=== PATIENT | female | born 1995 | race Caucasian/White ===

== ENCOUNTER 2018-05-26 11:33 | Inpatient (IN) | payer MEDICAID, OTHER, SELFPAY ==
[2018-05-26] MEDS ORDERED: Bupivacaine 0.25% HCL 30 ML VIAL ONE (12:00)
[2018-05-26 12:16] VITALS: BMI 36.7
[2018-05-26 12:48] LABS: Amnisure Test RUPTURE DETECTED (No Rupture)
[2018-05-26 12:51] LABS: Amnisure Internal Control QC ACCEPTABLE (ACCEPTABLE)
[2018-05-26] MEDS ORDERED: Lidocaine 1% (PF) 30 ML VIAL SC PRN (13:15)
[2018-05-26] MEDS ORDERED: Ondansetron HCl/PF 4 MG/2 ML Vial IVP PRN (13:15)
[2018-05-26] MEDS ORDERED: Penicillin G Potassium 5 MILL.UNITS in Sodium Chloride 0.9% 100 ML IVPB SCH (13:15)
[2018-05-26] MEDS ORDERED: Zolpidem Tartrate 5 MG TAB PO PRN (13:15)
[2018-05-26] MEDS ORDERED: Promethazine HCl 25 MG/ML VIAL IM PRN (13:15)
[2018-05-26] MEDS ORDERED: Lactated Ringer's 1,000 ML IV SCH (13:15)
[2018-05-26] MEDS ORDERED: NS / Oxytocin 40 units/1000ml 1,000 ML IV PRN (13:15)
[2018-05-26] MEDS ORDERED: NS w/ Oxytocin 10 units 500 ML IV SCH ×2 (13:15→22:00)
[2018-05-26] MEDS ORDERED: HYDROcodone/Acetaminophen 5/325 mg Tablet PO PRN ×2 (13:15)
[2018-05-26] MEDS ORDERED: Ibuprofen 800 MG TAB PO PRN (13:15)
[2018-05-26] MEDS ORDERED: Butorphanol Tartrate 1 MG/ML VIAL SLOW IVP PRN (13:15)
--- NOTE | 2018-05-26 13:28 | PDOC.LDHP ---
Labor and Delivery H&P Chief complaint: loss of fluid HPI: 22 yo WG presents c/o suspected SROM at 0030. Denies bleeding or UCs. Current gestational age (weeks): 37 Due date: 06/15/18 Dating criteria: last menstrual period Grav: 1 Para: 0 OB History Details: PNC with royal Fernández, h/o anxiety started on Prozac. Current complications: none Abnormal US findings: No Past Medical History: asthma as child, no recent attacks Current medications: pre-herve vitamins Previous surgical history: other (T&A, knee x2) Allergies/Adverse Reactions: Allergies Allergy/AdvReac Type Severity Reaction Status Date / Time No Known Allergies Allergy Verified 12/20/13 16:15 Social history: none - Physical Exam Abnormal vital signs: BP= 140/90's General: NAD Lungs: nonlabored breathing Abdomen: gravid Extremeties: trace edema FHT: category 1 [place] contractions every: irritability seen - OB Labs Blood type: A RH: positive GBS: positive (per pt. report) - Assessment L&D Assessment: term rupture in membranes - Plan Plan: admit to L&D, GBS antibiotic prophylaxis (Royal Fernández notified of pt. in L&D )
[2018-05-26] MEDS: Lactated Ringer's 1,000 ML IV SCH ×2 (14:00→20:16)
[2018-05-26] MEDS: Misoprostol 100 MCG TAB PO SCH ×3 (14:09→20:15)
[2018-05-26 14:10] LABS: Hemoglobin 11.4 g/dL (12.0-16.0); Mean Corpuscular HGB CONC 34.6 g/dL (32.0-36.0); Mean Corpuscular Hemoglobin 29.2 pg (27.0-31.0); Mean Corpuscular Volume 84.4 fL (78.0-98.0); Mean Platelet Volume 8.4 fL (7.4-10.4); Platelet Count 244 thou/uL (130-400); RBC Distribution Width 13.3 % (11.5-14.5); White Blood Cell (WBC) Count 12.6 thou/uL (4.8-10.8)
[2018-05-26 14:36] LABS: ALT (SGPT) Less than 7 U/L (8-55); AST (SGOT) 11 U/L (5-34); Albumin 3.2 g/dL (3.5-5.0); Alkaline Phosphatase 125 U/L (40-150); Anion Gap 14 mmol/L (10-20); BUN (Urea Nitrogen) 6 mg/dL (7.0-18.7); Bilirubin, Total 0.3 mg/dL (0.2-1.2); Calc. Creatinine Clearance 206 mL/min (70-130); Calcium 8.6 mg/dL (7.8-10.44); Carbon Dioxide 19 mmol/L (22-29); Chloride 106 mmol/L (98-107); Estimated GFR-MDRD Greater than 90; Globulin 2.5 g/dL (2.4-3.5); Glucose 83 mg/dL (70-105); Potassium 4.3 mmol/L (3.5-5.1); Protein, Total 5.7 g/dL (6.0-8.3); Sodium 135 mmol/L (136-145)
[2018-05-26 14:55] LABS: HBSAg Index 0.18 S/CO (0-0.99); Hep B Surf Ag Non-Reactive S/CO (NonReactive); Syphilis Antibody Nonreactive (Nonreactive); Syphilis Antibody Index 0.04 S/CO (<1.00 Non-Reactive)
[2018-05-26 15:16] LABS: Bilirubin Small (Negative); Blood, Urine Large (Negative); Clarity CLOUDY (Clear); Glucose, Urine (Dipstick) Negative (Negative); Leukocyte Moderate (Negative); Nitrite Negative (Negative); Protein, Urine (Dipstick) 30 mg/dL (Neg-Trace); Specific Gravity, Urine 1.027 (1.002-1.036)
[2018-05-26 15:18] LABS: Bacteria/HPF None Seen HPF (None Seen); Hyaline Casts/LPF 7-10 HYALINE CAST LPF (0-3 Hyaline); Pathc Cast-AUWi Flag 1.88 (0-2.49); RBC/HPF GREATER THAN 50-TNTC HPF (0-3)
[2018-05-26] MEDS ORDERED: Bupivacaine 0.75% 13.4 ML, fentaNYL Citrate/PF 400 MCG in Sodium Chloride 0.9% 78.6 ML EPIDURAL SCH (17:30)
[2018-05-26] MEDS ORDERED: DISCONTINUE ALL PREVIOUS NARCOTICS FS SCH (17:30)
[2018-05-26] MEDS: Penicillin G 2.5 MILL.units 2.5 MILL.UNITS in Premix Bag 1 BAG IVPB SCH ×2 (18:05→22:17)
[2018-05-26] MEDS ORDERED: Acetaminophen 500 MG TAB PO PRN (23:34)
[2018-05-27] MEDS ORDERED: Bupivacaine 0.75% 13.4 ML, fentaNYL Citrate/PF 400 MCG in Sodium Chloride 0.9% 78.6 ML EPIDURAL SCH (01:30)
[2018-05-27] MEDS ORDERED: DISCONTINUE ALL PREVIOUS NARCOTICS FS SCH (01:30)
[2018-05-27] MEDS ORDERED: Methylergonovine 0.2 MG/ML VIAL ONE (02:10)
[2018-05-27] MEDS: Misoprostol 200 MCG TAB ONE (02:20)
--- NOTE | 2018-05-27 02:50 | PDOC.OPDEL ---
OB Operative/Delivery Note Delivery Dr/Surgeon: Emily galeano CNM Pre-Delivery Diagnosis: active labor Procedure/Post Delivery Dx: spontaneous vaginal delivery Weeks gestation: 37 Anesthesia: epidural - Findings A Sex: female Weight: 6 lb 12 oz - 1 min: 9 - 5 min: 9 - Additional Findings/Plan Placenta delivered: manual removal Repaired Obstetrical Laceration: right labial (and left labial) Estimated blood loss: 500mL Compilations/Other Findings: retained placenta at 30 mins after delivery of . manual removal performed. uterus was boggy immediately following despite bimanual massage and pitocin. Methergine IM given and rectal cytotec. Ancef IVP for infection prophylaxis. Post delivery plan: routine recovery
[2018-05-27] MEDS ORDERED: CEFAZOLIN/Water 2 GM/20 ML SYRINGE SLOW IVP SCH (03:00)
[2018-05-27] MEDS ORDERED: Methylergonovine 0.2 MG/ML VIAL IM SCH (03:00)
[2018-05-27] MEDS ORDERED: Methylergonovine 0.2 MG/ML VIAL IM PRN (05:41)
[2018-05-27] MEDS ORDERED: NS / Oxytocin 40 units/1000ml 1,000 ML IV SCH (05:41)
[2018-05-27] MEDS ORDERED: Milk Of Magnesia 30 ML UDCUP PO PRN (05:41)
[2018-05-27] MEDS ORDERED: Adacel (T-DAP) 0.5 ML VIAL IM ONE (05:41)
[2018-05-27] MEDS ORDERED: Misoprostol 200 MCG TAB VAG SCH (05:41)
[2018-05-27] MEDS ORDERED: Benzocaine/Menthol 20-0.5% 60 ML CAN TOP PRN (05:41)
[2018-05-27] MEDS ORDERED: Bisacodyl 10 MG SUPP PR PRN (05:41)
[2018-05-27] MEDS ORDERED: Measles/Mumps/Rubella 10 MCG/0.5 ML VIAL SC ONE (05:41)
[2018-05-27] MEDS ORDERED: Ondansetron HCl/PF 4 MG/2 ML Vial IVP PRN (05:41)
[2018-05-27] MEDS ORDERED: Varicella virus, LIVE 0.5 ML VIAL SC ONE (05:41)
[2018-05-27] MEDS ORDERED: Ibuprofen 800 MG TAB PO SCH (06:00)
[2018-05-27] MEDS ORDERED: Ondansetron ODT 4 MG TAB PO PRN (06:06)
[2018-05-27] MEDS: HYDROcodone/Acetaminophen 5/325 mg Tablet PO PRN ×4 (06:22→20:25)
[2018-05-27] MEDS: Misoprostol 100 MCG TAB PO SCH ×2 (08:00→08:01)
[2018-05-27] MEDS: Penicillin G 2.5 MILL.units 2.5 MILL.UNITS in Premix Bag 1 BAG IVPB SCH (08:01)
[2018-05-27] MEDS: Lactated Ringer's 1,000 ML IV SCH (08:02)
[2018-05-27] MEDS: Ferrous Sulfate 325 MG TAB PO SCH ×2 (09:47→18:34)
[2018-05-27] MEDS: Docusate Calcium (SURFAK) 240 MG CAP PO SCH ×2 (09:48→21:29)
[2018-05-27] MEDS: Ibuprofen 800 MG TAB PO SCH ×2 (12:49→21:29)
[2018-05-27] MEDS ORDERED: diphenhydrAMINE 25 MG CAP PO PRN (15:18)
[2018-05-28 05:30] LABS: Hemoglobin 7.9 g/dL (12.0-16.0); Mean Corpuscular HGB CONC 33.5 g/dL (32.0-36.0); Mean Corpuscular Hemoglobin 28.9 pg (27.0-31.0); Mean Corpuscular Volume 86.3 fL (78.0-98.0); Mean Platelet Volume 8.1 fL (7.4-10.4); Platelet Count 171 thou/uL (130-400); RBC Distribution Width 13.3 % (11.5-14.5); Red Blood Cell (RBC) Count 2.72 mill/uL (4.20-5.40); White Blood Cell (WBC) Count 12.6 thou/uL (4.8-10.8)
[2018-05-28] MEDS: Ibuprofen 800 MG TAB PO SCH ×3 (05:49→21:42)
[2018-05-28] MEDS: HYDROcodone/Acetaminophen 5/325 mg Tablet PO PRN ×2 (05:50→17:37)
[2018-05-28] MEDS: Ferrous Sulfate 325 MG TAB PO SCH ×2 (09:46→17:31)
[2018-05-28] MEDS: Docusate Calcium (SURFAK) 240 MG CAP PO SCH ×2 (09:46→21:42)
[2018-05-29] MEDS: Ibuprofen 800 MG TAB PO SCH (06:09)
[2018-05-29 07:49] VITALS: BP 129/71; TEMP 98.4
[2018-05-29] MEDS: Ferrous Sulfate 325 MG TAB PO SCH (09:23)
[2018-05-29] MEDS: Docusate Calcium (SURFAK) 240 MG CAP PO SCH (09:23)
--- NOTE | 2018-05-29 10:12 | PDOC.PP ---
Post Progress Note Post Day #: 1 Subjective: doing well. had BM. struggling with PO intake tolerated: yes Flatus: yes Ambulation: yes Vital Signs (12 hours) Temp Pulse Resp BP 05/29/18 08:00 98.4 F 79 18 05/29/18 07:48 98.4 F 79 18 129/71 Weight Weight 201 lb - Physical Examination General: NAD Cardiovascular: no m/r/g Respiratory: non-labored breathing Abdominal: lochia (minimla) Extremities: negative homans (B) Psychiatric: A&Ox3 Result Diagrams: 05/28/18 04:42 05/26/18 14:04 Additional Labs: Post Labs Blood Type A POSITIVE 05/26/18 14:04 Hep Bs Antigen Non-Reactive S/CO (NonReactive) 05/26/18 14:04 (1) (spontaneous vaginal delivery) Code(s): O80 - ENCOUNTER FOR FULL-TERM UNCOMPLICATED DELIVERY Status: Acute - Assessment/Plan G1 no p1 sp . NML PPD#1 exam encouraged and pumping. routine care. will keep patient until tomorrow - because of increased risk of endometritis..
== END 2018-05-29 10:40 | disposition home or self-care (01) | DRG 767 ==
LOC: L&D/OP 11:33 → L&D 13:09 → 3SW 05-27 05:35
PROVIDERS: ADMIT Obstetrics & Gynecology; ATTEND Obstetrics & Gynecology
PROC: 10E0XZZ Delivery of Products of Conception, External Approach (ICD-10-PCS; principal; 2018-05-27)
PROC: 10D17Z9 Manual Extraction of Products of Conception, Retained, Via Natural or Artificial Opening (ICD-10-PCS; 2018-05-27)
PROC: 0UQMXZZ Repair Vulva, External Approach (ICD-10-PCS; 2018-05-27)
DX: O73.0 Retained placenta without hemorrhage (principal); Z37.0 Single live birth; O70.0 First degree perineal laceration during delivery; O75.89 Other specified complications of labor and delivery; Z3A.37 37 weeks gestation of pregnancy
CPT/HCPCS: 36415; 51702; 80053; 81015; 84112; 85027; 86780; 86850; 86900; 86901; 87340; 88307; 99285; J0595; J2001; J2210; J2405; J2540; J3010; J7050; Q0162; S0020

== ENCOUNTER 2020-07-15 14:43 | Day surgery (SDC) | payer OTHER ==
[2020-07-15 15:23] VITALS: BMI 37.7
[2020-07-15] MEDS ORDERED: hydrALAZINE 20 MG/ML VIAL SLOW IVP PRN (15:28)
[2020-07-15 16:16] LABS: #Eosinphils 0.1 thou/uL (0.0-0.7); #Lymphocytes 1.5 thou/uL (1.20-3.40); #Neutrophils 10.4 thou/uL (1.40-6.50); %Basophils 0.2 % (0.0-1.0); %Eosinophils 0.9 % (0.0-10.0); %Lymphocytes 11.3 % (21.0-51.0); %Monocytes 7.5 % (0.0-10.0); Hemoglobin 11.8 g/dL (12.0-16.0); Mean Corpuscular HGB CONC 34.9 g/dL (32.0-36.0); Mean Corpuscular Hemoglobin 29.3 pg (27.0-31.0); Mean Platelet Volume 8.4 fL (7.4-10.4); Platelet Count 254 thou/uL (130-400); RBC Distribution Width 12.7 % (11.5-14.5); Red Blood Cell (RBC) Count 4.01 mill/uL (4.20-5.40)
[2020-07-15 16:24] LABS: Creatinine, Urine 256.11 mg/dL (47-110)
[2020-07-15 16:50] LABS: ALT (SGPT) Less than 7 U/L (8-55); AST (SGOT) 10 U/L (5-34); Albumin 3.2 g/dL (3.5-5.0); Alkaline Phosphatase 112 U/L (40-110); Anion Gap 14 mmol/L (10-20); BUN (Urea Nitrogen) 5 mg/dL (7.0-18.7); Bilirubin, Total 0.2 mg/dL (0.2-1.2); Calc. Creatinine Clearance 238 mL/min (70-130); Calcium 8.5 mg/dL (7.8-10.44); Carbon Dioxide 21 mmol/L (22-29); Chloride 105 mmol/L (98-107); Estimated GFR-MDRD Greater than 90; Globulin 3.3 g/dL (2.4-3.5); Glucose 75 mg/dL (70-105); Potassium 3.7 mmol/L (3.5-5.1); Protein, Total 6.5 g/dL (6.0-8.3); Sodium 136 mmol/L (136-145)
== END 2020-07-15 17:30 | disposition home or self-care (01) ==
LOC: L&D/OP 14:43
PROVIDERS: ATTEND Advanced Practice Midwife
DX: O14.90 Unspecified pre-eclampsia, unspecified trimester (principal); O99.89 Other specified diseases and conditions complicating pregnancy, childbirth and the puerperium; H53.8 Other visual disturbances; Z3A.00 Weeks of gestation of pregnancy not specified
CPT/HCPCS: 36415; 80053; 82570; 84156; 85025; 99283

== ENCOUNTER 2020-07-20 22:11 | Day surgery (SDC) | payer OTHER ==
[2020-07-20 22:44] VITALS: BMI 38.9
[2020-07-20 22:52] VITALS: BP 119/76; TEMP 98.3
[2020-07-21] MEDS ORDERED: hydrALAZINE 20 MG/ML VIAL SLOW IVP PRN (00:31)
--- NOTE | 2020-07-21 01:35 | PRG ---
DATE OF SERVICE: 07/20/2020 PRIMARY OB: Nora Fernández CNM CHIEF COMPLAINT: Elevated blood pressure. HISTORY OF PRESENT ILLNESS: The patient is a 24-year-old, G2, P1 female with an IUP at 35 weeks and 2 days, presenting to Labor and Delivery with elevated blood pressure at home today. She reports top number being in the 140s, the bottom number being in the 80s. She reports that she last week was seen in the clinic and was noted to have 2 mild range blood pressures there and since has been checking her blood pressures at home. The patient reports she had a headache earlier that has now resolved spontaneously. She denies fever, cough, or chest pain. She has some shortness of breath with the , but denies any acute changes, more specifically she has difficulty taking a deep breath. She denies any new rashes, nausea, vomiting, diarrhea, or constipation. She has some hip pains with this . She denies vaginal bleeding, leakage of fluid, change in discharge, urinary urgency or frequency. PAST MEDICAL HISTORY: Asthma, controlled off medication. PAST SURGICAL HISTORY: She has had orthopedic surgery on her knees, tonsils removed, and wisdom tooth extraction. ALLERGIES: NO KNOWN DRUG ALLERGIES. MEDICATIONS: vitamins. SOCIAL HISTORY: Denies drug, alcohol, or tobacco use. OB HISTORY: Preeclampsia with her previous . OB LABS: Unavailable at time of dictation. REVIEW OF SYSTEMS: Per HPI. PHYSICAL EXAMINATION: VITAL SIGNS: Blood pressures over the last 2 hours have been in the one teens over 70s, heart rate in the 90s, respiratory rate 18, saturating 98% on room air, and temperature 98.3. GENERAL: She appears to be in no acute distress. She is alert, oriented, cooperative, and pleasant to interact with. HEAD: Normocephalic and atraumatic. LUNGS: Clear to auscultation bilaterally. HEART: Regular rate and rhythm. ABDOMEN: Gravid, soft, and nontender. EXTREMITIES: Nontender and nonedematous. : Has been deferred. heart tracing shows the fetus with a baseline in the 130s with moderate long-term variability positive 15 x 15 accelerations, no decelerations. Tocometer showing some irritability, but not palpable by the patient. ASSESSMENT AND PLAN: The patient is a 24-year-old female with a history of preeclampsia and concerns of elevated blood pressure at home. Blood pressures here been checked over the course of 2 hours and were all been well within normal limits. The patient has no other signs or symptoms of concern. Fetus has a category 1 tracing and reactive NST. The patient is being discharged to home with instructions to follow up with her primary OB on as scheduled. Job ID: [id number]
== END 2020-07-21 00:50 | disposition home health service (06) ==
LOC: L&D/OP 22:11
PROVIDERS: ATTEND Obstetrics & Gynecology
DX: O99.89 Other specified diseases and conditions complicating pregnancy, childbirth and the puerperium (principal); R03.0 Elevated blood-pressure reading, without diagnosis of hypertension; O99.513 Diseases of the respiratory system complicating pregnancy, third trimester; J45.909 Unspecified asthma, uncomplicated; Z3A.35 35 weeks gestation of pregnancy
CPT/HCPCS: 99281

== ENCOUNTER 2020-07-31 10:17 | Day surgery (SDC) | payer OTHER ==
[2020-07-31 11:11] VITALS: BP 131/89; TEMP 98.6; BMI 38.9
[2020-07-31] MEDS ORDERED: hydrALAZINE 20 MG/ML VIAL SLOW IVP PRN (11:29)
--- NOTE | 2020-07-31 11:59 | PDOC.FPROB ---
FMR OB H&P: HPI - History of Present Illness Chief Complaint: ctx and LOF Indentification: 24yo @ 36.6 by 1T sono History of Present Illness: 24yo @ 36.6 by 1T sono presents for ctx and concern for LOF. Ctx started about 0345 this morning, intermittent, initially increased in spacing to about q5min. Associated RUQ pain. May have had a slow, leakage of fluid, no large gush. No vaginal bleeding. No dysuria. Thought she may have UTI due to suprapubic pressure and slight urinary frequency. Ctx have since spaced out and now just intermittent. Has been checking BP at home and running 130s-140s/90s. Associated GALEANA not relieved by Tylenol, vision changes described as floaters. No current GALEANA or vision changes or RUQ pain. No SOB, CP, n/v. Endorses good movement. Was checked in clinic last week and was 2cm per pt. Primary Care Physician: Payton Fernández FMR OB H&P: Current - Care : 2 Para: 1001 Gestational age: 36.6 Dating Criteria: 1T sono - OB Labs Blood type: A RH: positive Antibody Screen: negative HIV: negative RPR: negative HepBsAg: negative Rubella: immune Gonorrhea: negative Chlamydia: negative H&H: 13.5 FMR OB H&P: History - Past Medical History PMH: Asthma, no current meds - OB History OB History: Prior complicated by PreE. SROM at 37weeks. Delivery via at 37.2 , complicated by retained placenta requiring manual extraction, no PPH. - [employer] History [employer] History: None - Surgical History Sx History: Knee surgery, tonsils, wisdom teeth - Social History Social History: Denies tob, illicits, EtOH - Family History Family History: Noncontributory FMR OB H&P: Medications - Current Home Medications: Medication Instructions Recorded Confirmed Type Vitamin 2 tablet PO DAILY 05/26/18 07/15/20 History Aspirin Chewable [Aspirin Chewable 1 tab PO DAILY 07/15/20 07/15/20 History Tablet] Allergies/Adverse Reactions: Allergies Allergy/AdvReac Type Severity Reaction Status Date / Time No Known Allergies Allergy Verified 07/31/20 11:02 FMR OB H&P: ROS - Review of Systems General: denies: fever/chills, weight/appetite/sleep changes, night sweats, fatigue Eyes: reports: floaters. denies: double vision ENT: denies: nasal congestion, rhinorrhea, sore throat Cardiovascular: denies: chest pain, palpitation Respiratory: denies: cough, congestion, shortness of breath Gastrointestinal: denies: abdominal pain, nausea, vomiting Genitourinary (Female): reports: incontinence, polyuria, contractions. denies: dysuria, hematuria, vaginal discharge, vaginal pain, vaginal bleeding Neurologic: denies: numbness, syncope Integumentary: denies: rash FMR OB H&P: Vital Signs - Maternal Vital signs: Vital Signs - First Documented Temp Pulse Resp BP Pulse Ox 98.6 F 96 16 131/89 100 07/31/20 10:42 07/31/20 10:42 07/31/20 10:42 07/31/20 10:42 07/31/20 10:42 - Heart Tones Baseline: 140 Variability: moderate Acceleration: present Deceleration: absent Category: category 1 [place] contractions every: intermittent FMR OB H&P: Physical Exam - Physical Exam General: NAD, awake, alert and oriented HEENT: PERRLA, EOMI, MMM, conjunctiva clear Neck: supple, trachea midline Heart: RRR, normal S1/S2, no murmurs/rubs/gallops General: CTAB, no respiratory distress, good air movement, no wheezing Abdomen: soft, gravid, non-tender, bowel sound present Skin: no rash Psychiatric: intact recent and remote memory, good judgement and insight, normal mood and affect - Pelvic Exam Vulva: normal hair distribution Cervix: no masses, no lesions, no blood Deviation from normal: No LOF with valsalva. Moderate, thin, white-green discharge noted SVE: /-2 FMR OB H&P: A/P - Problem List (1) 36 weeks gestation of Status: Acute Code(s): Z3A.36 - 36 WEEKS GESTATION OF Disposition: 24yo @ 36.6 by 1T sono complicated by marginal placenta and possible cHTN presents for ctx and concern for LOF. #Concern for labor and SROM - Ctx starting this AM with possible LOF - Ctx have since spaced out, no PO this AM, will provide PO hydration - Spec exam negative for LOF or pooling, will obtain Amnisure - SVE /2 similar to clinic check last week per patient - Cat 1 strip with intermittent ctx - will obtain UA due to vague urinary sxs - will cont to monitor #Elevated BP - BPs 140s/100s at presentation, states home BPs 130s-140s/90s - Endorses GALEANA, RUQ pain, and floaters - Had PreE workup about 3 weeks ago that was negative - PreE in prior pregnancies and states has had "high blood pressure since," possibly cHTN - will obtain PreE labs and monitor, no severe range pressures #Marginal placenta - documented, patient states was initially schd for PCS but the placenta has moved - If appears in labor or PPROM, will need US; if not, recommend follow up with PCP next week #Asthma - mild, intermittent, monitor #History of retained placenta after first delivery requiring manual extraction - aware #GBS carrier in prior - aware, current GBS swab pending PCP: Payton Fernández Dispo: labor and SROM r/o. UA and preE labs. Monitor. Discussion: Date/Time: 07/31/20 0555 This H&P was discussed with Dr. Pike who agrees with the above documentation and plan. Addendum - Attending - Attending Attestation Date/Time: 07/31/202030 I personally evaluated the patient and discussed the management with Dr. Guan. I agree with the History, Examination, Assessment and Plan documented above.
[2020-07-31 12:12] LABS: Amnisure Test No Membranes Rupture (No Rupture)
[2020-07-31 12:13] LABS: Amnisure Internal Control QC ACCEPTABLE (ACCEPTABLE)
[2020-07-31 13:11] LABS: Hemoglobin 12.1 g/dL (12.0-16.0); Mean Corpuscular HGB CONC 34.1 g/dL (32.0-36.0); Mean Corpuscular Hemoglobin 28.3 pg (27.0-31.0); Mean Corpuscular Volume 82.8 fL (78.0-98.0); Platelet Count 237 thou/uL (130-400); RBC Distribution Width 13.5 % (11.5-14.5); Red Blood Cell (RBC) Count 4.27 mill/uL (4.20-5.40); White Blood Cell (WBC) Count 10.5 thou/uL (4.8-10.8)
[2020-07-31 13:35] LABS: ALT (SGPT) Less than 7 U/L (8-55); AST (SGOT) 11 U/L (5-34); Albumin 3.3 g/dL (3.5-5.0); Alkaline Phosphatase 121 U/L (40-110); Anion Gap 16 mmol/L (10-20); BUN (Urea Nitrogen) 6 mg/dL (7.0-18.7); Bilirubin, Total 0.3 mg/dL (0.2-1.2); Calc. Creatinine Clearance 219 mL/min (70-130); Calcium 8.6 mg/dL (7.8-10.44); Carbon Dioxide 19 mmol/L (22-29); Chloride 105 mmol/L (98-107); Estimated GFR-MDRD Greater than 90; Globulin 3.1 g/dL (2.4-3.5); Glucose 76 mg/dL (70-105); Potassium 3.8 mmol/L (3.5-5.1); Protein, Total 6.4 g/dL (6.0-8.3); Sodium 136 mmol/L (136-145)
[2020-07-31 13:51] LABS: Bacteria/HPF None Seen HPF (None Seen); Bilirubin Negative (Negative); Blood, Urine Negative (Negative); Clarity Clear (Clear); Glucose, Urine (Dipstick) Normal (Negative); Ketone, Urine Negative (Negative); Leukocyte 25 Leu/uL (Negative); Nitrite Negative (Negative); Protein, Urine (Dipstick) 20 mg/dL (Neg-Trace); RBC/HPF 0-3 HPF (0-3); Specific Gravity, Urine 1.022 (1.002-1.036); Squamous Epithelial 0-3 HPF (0-3); Urobilinogen Normal mg/dL (Less than 2); WBC/HPF 0-3 HPF (0-3)
[2020-07-31 13:55] LABS: Urine Culture Reflex Yes Yes
[2020-07-31 14:05] LABS: Creatinine, Urine 151.32 mg/dL (47-110)
--- NOTE | 2020-07-31 14:13 | PDOC.BPN ---
- Brief Progress Note Encounter Date: 07/31/20 Encounter Time: 14:10 Patient doing well. On monitor no ctx. Reactive NST. No severe range pressures noted, no severe features on history. Patient still with intermittent pains. UA negative. CMP/CBC unremarkable. Urine Pr/Cr 0.14. VP3 negative. Spec exam and Amnisure negative. SROM r/o. SVE unchanged from last week at 2cm. Not in active labor. Negative PreE workup. Negative for UTI/asymptomatic bacteruria. Discussed results with patient and partner at bedside. Plan to discharge home with labor precautions. Has follow up next week with Payton Fernández, encouraged to keep appt. Patient voiced understanding and agreement of discharge plan, all questions answered.
== END 2020-07-31 14:23 | disposition home or self-care (01) ==
LOC: L&D/OP 10:17
PROVIDERS: ATTEND Advanced Practice Midwife
DX: O47.03 False labor before 37 completed weeks of gestation, third trimester (principal); O99.89 Other specified diseases and conditions complicating pregnancy, childbirth and the puerperium; N89.8 Other specified noninflammatory disorders of vagina; R03.0 Elevated blood-pressure reading, without diagnosis of hypertension; O99.513 Diseases of the respiratory system complicating pregnancy, third trimester; J45.909 Unspecified asthma, uncomplicated; O44.23 Partial placenta previa NOS or without hemorrhage, third trimester; Z3A.36 36 weeks gestation of pregnancy; Z79.82 Long term (current) use of aspirin
CPT/HCPCS: 36415; 80053; 81001; 82570; 84112; 84156; 85027; 87086; 87480; 87510; 87660; 99285

== ENCOUNTER 2020-08-05 09:29 | Outpatient (CLI) | payer OTHER ==
[2020-08-06 12:36] LABS: SARS-CoV-2 MS2 Positive; SARS-CoV-2 N Gene Negative; SARS-CoV-2 S Gene Negative; SARS-CoV-2 by NAA Not Detected (NotDetected); SARS-CoV-2 orf1ab Negative
== END 2020-08-05 09:30 | disposition home or self-care (01) ==
LOC: LABSCS 09:29
PROVIDERS: ATTEND Advanced Practice Midwife
DX: Z20.828 Contact with and (suspected) exposure to other viral communicable diseases (principal)
CPT/HCPCS: 87635; U0003

== ENCOUNTER 2020-08-08 05:30 | Inpatient (IN) | payer OTHER ==
[2020-08-08] MEDS ORDERED: Diphenoxylate HCl/Atropine Tablet PO PRN ×2 (06:10)
[2020-08-08] MEDS ORDERED: hydrALAZINE 20 MG/ML VIAL SLOW IVP PRN ×2 (06:10→19:41)
[2020-08-08] MEDS ORDERED: Promethazine HCl 25 MG/ML VIAL IM PRN ×2 (06:10→15:08)
[2020-08-08] MEDS ORDERED: Lidocaine 1% (PF) 30 ML VIAL SC PRN (06:10)
[2020-08-08] MEDS ORDERED: Ondansetron PF 4 MG/2 ML Vial IVP PRN ×2 (06:10→15:08)
[2020-08-08] MEDS ORDERED: HYDROcodone/Acetaminophen 5/325 mg Tablet PO PRN ×2 (06:10)
[2020-08-08] MEDS ORDERED: Ibuprofen 800 MG TAB PO PRN (06:10)
[2020-08-08] MEDS ORDERED: Misoprostol 200 MCG TAB PR PRN (06:10)
[2020-08-08] MEDS ORDERED: Carboprost 250 MCG/ML AMP IM PRN (06:10)
[2020-08-08] MEDS ORDERED: Butorphanol Tartrate 1 MG/ML VIAL SLOW IVP PRN (06:10)
[2020-08-08 06:20] VITALS: BMI 38.4
[2020-08-08] MEDS: Lactated Ringer's 1,000 ML IV SCH ×3 (07:22→18:29)
[2020-08-08 07:43] LABS: Hemoglobin 11.4 g/dL (12.0-16.0); Mean Corpuscular HGB CONC 33.8 g/dL (32.0-36.0); Mean Corpuscular Hemoglobin 27.6 pg (27.0-31.0); Mean Corpuscular Volume 81.8 fL (78.0-98.0); Mean Platelet Volume 9.2 fL (7.4-10.4); Platelet Count 231 thou/uL (130-400); RBC Distribution Width 13.7 % (11.5-14.5); Red Blood Cell (RBC) Count 4.11 mill/uL (4.20-5.40); White Blood Cell (WBC) Count 9.9 thou/uL (4.8-10.8)
[2020-08-08 07:57] LABS: ALT (SGPT) Less than 7 U/L (8-55); AST (SGOT) 10 U/L (5-34); Albumin 3.1 g/dL (3.5-5.0); Alkaline Phosphatase 128 U/L (40-110); Anion Gap 16 mmol/L (10-20); BUN (Urea Nitrogen) 6 mg/dL (7.0-18.7); Bilirubin, Total 0.2 mg/dL (0.2-1.2); Calc. Creatinine Clearance 223 mL/min (70-130); Calcium 8.1 mg/dL (7.8-10.44); Carbon Dioxide 18 mmol/L (22-29); Chloride 107 mmol/L (98-107); Estimated GFR-MDRD Greater than 90; Globulin 2.5 g/dL (2.4-3.5); Glucose 98 mg/dL (70-105); Potassium 3.8 mmol/L (3.5-5.1); Protein, Total 5.6 g/dL (6.0-8.3); Sodium 137 mmol/L (136-145)
[2020-08-08 08:15] LABS: Syphilis Antibody Nonreactive (Nonreactive); Syphilis Antibody Index 0.04 S/CO (<1.00 Non-Reactive)
[2020-08-08 08:24] LABS: HBSAg Index 0.12 S/CO (0-0.99); Hep B Surf Ag Non-Reactive S/CO (NonReactive)
[2020-08-08] MEDS: NS w/ Oxytocin 10 units 500 ML IV SCH ×2 (10:23→18:26)
[2020-08-08] MEDS ORDERED: Acetaminophen 325 MG TAB PO PRN ×2 (11:23→15:08)
[2020-08-08] MEDS ORDERED: Fentanyl 4 mcg/Bup 0.1% Cadd 100 ML ONE (14:25)
[2020-08-08] MEDS ORDERED: Bupivacaine/Epinephrine 0.25% 30 ML VIAL ONE (15:07)
[2020-08-08] MEDS ORDERED: Naloxone HCl 0.4 mg/ml Vial IVP PRN ×2 (15:08)
[2020-08-08] MEDS ORDERED: Lactated Ringer's 500 ML IV PRN (15:08)
[2020-08-08] MEDS ORDERED: EPHEDRINE 25 MG/5 ML SYRINGE SLOW IVP PRN (15:08)
[2020-08-08] MEDS ORDERED: diphenhydrAMINE 50 MG/ML VIAL IVP PRN (15:08)
[2020-08-08] MEDS ORDERED: Fentanyl 4 mcg/Bupivacaine 0.1% Cassette 100 ML EPIDURAL SCH (15:15)
[2020-08-08] MEDS ORDERED: Communication Order-Pharmacy FS SCH (15:15)
--- NOTE | 2020-08-08 15:19 | PDOC.LDHP ---
Labor and Delivery H&P Chief complaint: scheduled induction (for GHTN,) HPI: Here for IOL for GHTN. Had a really bad headache this morning. Denies scomata , RUQ pain. Current gestational age (weeks): 37 (6 days) Due date: 08/23/20 Dating criteria: last menstrual period Grav: 2 Para: 1 OB History Details: 2018 37.2 6.12oz Current complications: gestational hypertension Abnormal US findings: No Past Medical History: Asthma anxiety Current medications: pre-herve vitamins, other (81mg Aspirin) Previous surgical history: other (Knee arthroscopy/surgery x 2 Tonsillectomy) Allergies/Adverse Reactions: Allergies Allergy/AdvReac Type Severity Reaction Status Date / Time No Known Allergies Allergy Verified 08/08/20 06:21 Social history: none - Physical Exam Abnormal vital signs: Occasional severe range BPs immediately prior to epidual. General: breathing through contractions Lungs: nonlabored breathing Abdomen: gravid FHT: category 1 [place] contractions every: Q2-3 - Vaginal Exam cm dilated: 3 Effacement: 75% Station: -3 - OB Labs Blood type: A RH: positive Antibody Screen: negative HIV: negative RPR: negative HEPSAg: negative 1 hour GCT: positive 3 hour GTT: Passed. 11/29 abnormal GBS: negative Urine drug screen: negative Rubella: immune - Assessment L&D Assessment: medically indicated induction - Plan Plan: admit to L&D, informed consent obtained -: Hold hydralazine immediately prior to epidural to prevent lower bp too rapidly. Pitocin and AROM for IOL Anticipate .
[2020-08-08] MEDS ORDERED: Labetalol HCl 100 MG/20 ML VIAL ONE (19:28)
[2020-08-08] MEDS: NS / Oxytocin 40 units/1000ml 1,000 ML IV PRN ×2 (21:04→23:18)
--- NOTE | 2020-08-08 21:35 | PDOC.OPDEL ---
OB Operative/Delivery Note Delivery Dr/Surgeon: luigi Pre-Delivery Diagnosis: active labor, medically indicated induction Procedure/Post Delivery Dx: spontaneous vaginal delivery Weeks gestation: 37 Anesthesia: epidural - Findings A Sex: male Weight: 8 lb - 1 min: 3 - 5 min: 8 - Additional Findings/Plan Placenta delivered: manual removal Repaired Obstetrical Laceration: none Estimated blood loss: 400mL Compilations/Other Findings: Shoulder dystocia. x approximately one minute OB hospitalist paged. Nursery at bedside Suprapubic on the pt right, unresolved. Unable to reduce posterior arm. Suprapubic on the pt left, resolved anterior should. Cord double clamped and cut and handed to awaiting NICU nurse. Cord gas collected. Post delivery plan: routine recovery
[2020-08-08 21:39] LABS: Actual Bicarbonate (HCO3a) 26.5 mEq/L (22-28); Analyzer IN Cardio OR; Base Excess (BEa) -3.4 mEq/L (-2.0 to +3.0)
[2020-08-08 21:41] LABS: Actual Bicarbonate (HCO3v) 23 mEq/L (22-28); Analyzer IN Cardio OR; Base Excess -2.2 mEq/L (-2.0 to +3.0); pH (Cord, venous) 7.36 (7.32-7.43)
[2020-08-09] MEDS ORDERED: Bisacodyl 10 MG SUPP PR PRN (01:12)
[2020-08-09] MEDS ORDERED: Lanolin Ointment 7 GM TUBE TOP PRN (01:12)
[2020-08-09] MEDS ORDERED: HYDROcodone/Acetaminophen 5/325 mg Tablet PO PRN (01:12)
[2020-08-09] MEDS ORDERED: Milk Of Magnesia 30 ML UDCUP PO PRN (01:12)
[2020-08-09] MEDS ORDERED: Benzocaine-Menthol 82.5 ML CAN TOP PRN (01:12)
[2020-08-09] MEDS ORDERED: NS / Oxytocin 40 units/1000ml 1,000 ML IV SCH (01:12)
[2020-08-09] MEDS ORDERED: Misoprostol 200 MCG TAB VAG PRN (01:12)
[2020-08-09] MEDS ORDERED: hydrALAZINE 20 MG/ML VIAL SLOW IVP PRN (01:12)
[2020-08-09] MEDS: HYDROcodone/Acetaminophen 5/325 mg Tablet PO PRN (01:32)
[2020-08-09] MEDS: Ibuprofen 800 MG TAB PO SCH ×3 (04:47→22:18)
[2020-08-09] MEDS: Ferrous Sulfate 325 MG TAB PO SCH ×2 (07:53→17:24)
[2020-08-09] MEDS ORDERED: Adacel (T-DAP) 0.5 ML SYRINGE IM ONE (09:00)
[2020-08-09] MEDS: Docusate Calcium (SURFAK) 240 MG CAP PO SCH ×2 (09:19→22:20)
[2020-08-09] MEDS: Prenatal Vitamin 1 TAB PO SCH (09:19)
--- NOTE | 2020-08-09 18:04 | PDOC.PP ---
Post Progress Note Post Day #: 1 Subjective: Pt is doing well. PO intake tolerated: yes Flatus: yes Ambulation: yes Vital Signs (12 hours) Temp Pulse Resp BP Pulse Ox 08/09/20 16:01 98.5 F 96 16 106/58 L 98 08/09/20 11:44 98.6 F 91 20 130/78 98 08/09/20 08:34 98.9 F 101 H 20 118/64 98 Weight Weight 217 lb - Physical Examination Respiratory: non-labored breathing Abdominal: no distention Extremities: negative homans (B) Skin: no rash Neurological: no gross focal deficits Psychiatric: A&Ox3, normal affect Result Diagrams: 08/08/20 07:29 08/08/20 07:29 Additional Labs: Post Labs Blood Type A POSITIVE 08/08/20 07:29 Hep Bs Antigen Non-Reactive S/CO (NonReactive) 08/08/20 07:29 (1) Shoulder dystocia during labor and delivery Code(s): O66.0 - OBSTRUCTED LABOR DUE TO SHOULDER DYSTOCIA Status: Acute (2) Shoulder dystocia during labor and delivery, delivered Code(s): O66.0 - OBSTRUCTED LABOR DUE TO SHOULDER DYSTOCIA Status: Acute (3) Gestational hypertension Code(s): O13.9 - GESTATIONAL HTN W/O SIGNIFICANT PROTEINURIA, UNSP TRIMESTER Status: Acute (4) (spontaneous vaginal delivery) Code(s): O80 - ENCOUNTER FOR FULL-TERM UNCOMPLICATED DELIVERY Status: Acute - Assessment/Plan A: g2 now p2 sp at 37.6 for GHTN and complicated by shoulder dystocia P: discharge home today
[2020-08-10] MEDS: HYDROcodone/Acetaminophen 5/325 mg Tablet PO PRN (00:36)
[2020-08-10 03:12] VITALS: TEMP 97.9
[2020-08-10] MEDS: Ibuprofen 800 MG TAB PO SCH (05:06)
[2020-08-10] MEDS: Prenatal Vitamin 1 TAB PO SCH (08:16)
[2020-08-10] MEDS: Ferrous Sulfate 325 MG TAB PO SCH (08:16)
[2020-08-10] MEDS: Docusate Calcium (SURFAK) 240 MG CAP PO SCH (08:16)
[2020-08-10 08:21] VITALS: BP 107/57
== END 2020-08-10 12:30 | disposition home or self-care (01) | DRG 807 ==
LOC: L&D 05:44 → 3SW 08-09 01:05
PROVIDERS: ADMIT Obstetrics & Gynecology; ATTEND Obstetrics & Gynecology
PROC: 10E0XZZ Delivery of Products of Conception, External Approach (ICD-10-PCS; principal; 2020-08-08)
PROC: 10907ZC Drainage of Amniotic Fluid, Therapeutic from Products of Conception, Via Natural or Artificial Opening (ICD-10-PCS; 2020-08-08)
PROC: 3E0P7VZ Introduction of Hormone into Female Reproductive, Via Natural or Artificial Opening (ICD-10-PCS; 2020-08-08)
PROC: 3E033VJ Introduction of Other Hormone into Peripheral Vein, Percutaneous Approach (ICD-10-PCS; 2020-08-08)
DX: O13.4 Gestational [pregnancy-induced] hypertension without significant proteinuria, complicating childbirth (principal); Z37.0 Single live birth; O66.0 Obstructed labor due to shoulder dystocia; Z3A.37 37 weeks gestation of pregnancy; Z20.828 Contact with and (suspected) exposure to other viral communicable diseases
CPT/HCPCS: 36415; 51702; 80053; 82805; 85027; 86780; 86850; 86900; 86901; 87340; 99285; J0360; J2405; J2590